=== PATIENT | male | born 1990 | race American Indian/Alaskan Native ===

== ENCOUNTER 2017-08-06 05:54 | Emergency (ER) | payer SELFPAY ==
[2017-08-06 07:13] VITALS: BP 136/88
[2017-08-06] MEDS ORDERED: BOOSTRIX IM ONE (08:51)
--- NOTE | 2017-08-06 09:21 | Emergency Department Report ---
ED Laceration HPI - HPI Chief Complaint: Wound/Laceration Stated Complaint: HEAD LAC Time Seen by Provider: 08/06/17 08:51 Occurred When: Today Location: Head Severity: mild Tetanus Status: Not up to Date Laceration Symptoms: No Foreign Body Sensation, No Numbness, No Weakness, No Pain Other History: This is a 27-year-old male nontoxic, well nourished in appearance , no acute signs of distress presents to the ED with c/o of head laceration that occurred this morning around 3 AM. Patient stated he was on the door of a car and the corner of the car door hit his head. Patient denies any headache, blurry vision, chest pain, breath, numbness, tingling, blurry vision, nausea, vomiting. Patient denies any loss of consciousness. Denies any alcohol or illegal drugs. Patient denies any allergies or past medical history. He state he is not up-to-date tetanus. ED Review of Systems ROS: Stated complaint: HEAD LAC Other details as noted in HPI Constitutional: denies: chills, fever Eyes: denies: eye pain, eye discharge, vision change ENT: denies: ear pain, throat pain Respiratory: denies: cough, shortness of breath, wheezing Cardiovascular: denies: chest pain, palpitations Endocrine: no symptoms reported Gastrointestinal: denies: abdominal pain, nausea, diarrhea Genitourinary: denies: urgency, dysuria Musculoskeletal: denies: back pain, joint swelling, arthralgia Skin: denies: rash, lesions Neurological: denies: headache, weakness, paresthesias Psychiatric: denies: anxiety, depression Hematological/Lymphatic: denies: easy bleeding, easy bruising ED Past Medical Hx - Past Medical History Previous Medical History?: No - Surgical History Past Surgical History?: No - Social History Smoking Status: Never Smoker Substance Use Type: None - Medications Home Medications: Home Medications Medication Instructions Recorded Confirmed Last Taken Type Sulfamethoxazole/Trimethoprim 1 each PO BID #14 tablet 08/06/17 Unknown Rx [Bactrim DS TAB] Laceration Physical Exam - Exam General: Vital signs noted. No distress. Alert and acting appropriately. GENERAL: The patient is a well-developed, well-nourished female in no apparent distress. Patient is alert and acting appropriately for age. Alert and oriented 3, no apparent distress, normal gait, atraumatic. HEENT: Head is normocephalic and atraumatic. PERRL, Extraocular muscles are intact. Pupils are equal, round, and reactive to light and accommodation. Nares appeared normal. Mouth is well hydrated and without lesions. Mucous membranes are moist. Posterior pharynx clear of any exudate or lesions. Mouth is well hydrated and without lesions. Tonsils not erythematous or swollen. Uvula midline. Tongue elevated. Mucous members are moist. Posterior pharynx clear, no exudate or lesions. Patent airways. NECK: Supple. No carotid bruits. No lymphadenopathy or thyromegaly.nontender. No meningitic signs are noted. LUNGS: Clear to auscultation. Non labor breathing. No intercostal retractions. Symmetrical with respiration, no wheezing, no rales, or crackles. HEART: Regular rate and rhythm without murmur, rubs or gallops. No reproducible. S1, S2 present, regular rate and rhythm without murmur, no rubs, no gallops. ABDOMEN: Soft, nontender, and nondistended. Positive bowel sounds. No hepatosplenomegaly was noted. No guarding or rebound tenderness, negative epigastric bruit. Negative psoas sign, negative sigala sign, negative McBurneys sign EXTREMITIES: Without any cyanosis, clubbing, rash, lesions or edema. Peripheral pulses intact. Capillary refill less than 2 seconds. Full range of motion bilaterally. NEUROLOGIC: Cranial nerves II through XII are grossly intact. Alert and oriented x 3. Normal gait. Symmetrical strength and sensation. Reflexes 2+ throughout. Cerebellar testing normal. GCS score of 15. PSYCHIATRIC: Normal affect with no suicidal or homicidal ideations. Skin: One centimeters superficial laceration to the right frontal lobe region. No induration or swelling noted. Bleeding under control. Wound Length (cm): 1 Laceration Location: Head Full Body Front + Back: 1 - 1 cm superficial lac Laceration Exam: Yes Normal Distal CMS, No Foreign Body, No Exposed Tendon, Vessel, or Nerve, No Tendon Injury ED Course Vital Signs 08/06/17 07:09 Temperature 97.6 F Pulse Rate 99 H Respiratory 16 Rate Blood Pressure 136/88 O2 Sat by Pulse 99 Oximetry - Reevaluation(s) Reevaluation #1: 08/06/17 09:19 Patient is speaking in full sentences with no signs of distress noted. - Laceration /Wound Repair Right Head Wound Location: head Wound Length (cm): 1 Wound's Depth, Shape: superficial, linear Wound Explored: clean Irrigated w/ Saline (ccs): 40 Betadine Prep?: Yes Layer Closure?: No Progress: Under sterile field, I used Betadine to clean the area. I then used 40 mL of normal saline to flush the area. I then used a stapler and stapled totaling 3 to the laceration region. Minimal bleeding noted but is under control. Patient tolerated procedure well with no signs of distress. ED Medical Decision Making - Medical Decision Making This is a 27-year-old male that presents with head laceration. Patient is stable stable and was examined by me. Laceration has been successfully repaired with michael. Patient was instructed to return in 5 days for staple removal. Patient received Bactrim at discharge. Patient received a booster of tetanus in the ED. Patient was instructed Follow-up with a primary care doctor in 3-5 days or if symptoms worsen and continue return to emergency room as soon as possible. At time time of discharge, the patient does not seem toxic or ill in appearance. No acute signs of distress noted. Patient agrees to discharge treatment plan of care. No further questions noted by the patient. Critical care attestation.: If time is entered above; I have spent that time in minutes in the direct care of this critically ill patient, excluding procedure time. ED Disposition Clinical Impression: Laceration Disposition: DC-01 TO HOME OR SELFCARE Is pt being admited?: No Does the pt Need Aspirin: No Condition: Stable Instructions: Laceration (ED), Staple Care (ED), Sulfamethoxazole/Trimethoprim (By mouth) Additional Instructions: Follow-up with a primary care doctor in 3-5 days or if symptoms worsen such as headache, blurry vision, nausea, vomiting or any other symptoms and continue return to emergency room as soon as possible. Return in 5 days to remove ear michael Prescriptions: Sulfamethoxazole/Trimethoprim [Bactrim DS TAB] 1 each PO BID #14 tablet Referrals: PRIMARY CARE, [Primary Care Provider] - 3-5 Days JUSTIN COLMENARES MD [Staff Physician] - 3-5 Days [facility] [Outside] - 3-5 Days [facility] [Outside] - 3-5 Days Forms: Work/School Release Form(ED)
[2017-08-06] MEDS ORDERED: MOTRIN PO ONE (09:29)
== END 2017-08-06 09:49 | disposition home or self-care (01) ==
LOC: ED 05:54
DX: S01.81XA Laceration without foreign body of other part of head, initial encounter (principal); W22.8XXA Striking against or struck by other objects, initial encounter; Y93.89 Activity, other specified; Y92.89 Other specified places as the place of occurrence of the external cause; Y99.8 Other external cause status
CPT/HCPCS: 90471; 90715; 99282

== ENCOUNTER 2017-08-11 13:25 | Emergency (ER) | payer SELFPAY ==
[2017-08-11 13:41] VITALS: BP 110/60
--- NOTE | 2017-08-11 14:01 | Emergency Department Report ---
Suture/Staple Removal - [facility] Chief Complaint: Laceration/Recheck/Suture Stated Complaint: MICHAEL REMOVED Time Seen by Provider: 08/11/17 13:53 When Sutures or [place] Placed: 5-7 Days Ago (placed approximately 6-7 days ago. Patient hit head on car door) Wound Location: 27-year-old male presents for staple removal right anterior upper scalp. ED Review of Systems ROS: Stated complaint: MICHAEL REMOVED Other details as noted in HPI Constitutional: denies: chills, fever Eyes: denies: eye pain, eye discharge, vision change ENT: as per HPI (patient had 3 michael placed in his right upper anterior scalp) . denies: ear pain, throat pain Respiratory: denies: cough, shortness of breath, wheezing Cardiovascular: denies: chest pain, palpitations Endocrine: no symptoms reported Gastrointestinal: denies: abdominal pain, nausea, diarrhea Genitourinary: denies: urgency, dysuria Musculoskeletal: denies: back pain, joint swelling, arthralgia Skin: denies: rash, lesions Neurological: denies: headache, weakness, paresthesias Psychiatric: denies: anxiety, depression Hematological/Lymphatic: denies: easy bleeding, easy bruising ED Past Medical Hx - Past Medical History Previous Medical History?: No - Surgical History Past Surgical History?: No - Social History Smoking Status: Never Smoker Substance Use Type: None - Medications Home Medications: Home Medications Medication Instructions Recorded Confirmed Last Taken Type Sulfamethoxazole/Trimethoprim 1 each PO BID #14 tablet 08/06/17 Unknown Rx [Bactrim DS TAB] Suture Removal Exam - Exam General: Vital signs noted. No distress. Alert and acting appropriately. Wound: No Pathologic Erythema, No Tenderness, No Drainage, No Pus, No Wound Dehiscence (wound appears well-healed no wound dehiscence) Other Systems: All other systems reviewed and are unremarkable. ED Course Vital Signs 08/11/17 13:38 Temperature 98 F Pulse Rate 61 Respiratory 20 Rate Blood Pressure 110/60 O2 Sat by Pulse 100 Oximetry ED Recheck MDM - Differential Diagnosis Suture/Staple Removal - Medical Decision Making A/P: Staple removal right upper scalp 1-no signs of infection cellulitis. On drainage or wound dehiscence on exam 2-3 michael successfully and easily removed 3-I advised patient on acute wound care Critical care attestation.: If time is entered above; I have spent that time in minutes in the direct care of this critically ill patient, excluding procedure time. ED Disposition Clinical Impression: Removal of michael Disposition: TO HOME OR SELFCARE Is pt being admited?: No Does the pt Need Aspirin: No Condition: Stable Instructions: Suture Removal (ED) Referrals: [facility] [Outside] - 3-5 Days Time of Disposition: 14:00
== END 2017-08-11 14:12 | disposition home or self-care (01) ==
LOC: ED 13:25
DX: S01.01XD Laceration without foreign body of scalp, subsequent encounter (principal)